=== PATIENT | male | born 1945 | race Caucasian/White ===

== ENCOUNTER 2017-02-18 09:27 | Day surgery (SDC) | payer OTHER ==
[~2017-02-18] VITALS: Ht 167.6 cm; Wt 90.2 kg
[2017-02-18] MEDS ORDERED: ASPIRIN (09:47)
[2017-02-18 09:52] VITALS: Ht 167.6 cm; Wt 90.2 kg
[2017-02-18] MEDS ORDERED: PROPOFOL 40 ML ONE (10:21)
--- NOTE | 2017-02-18 10:58 | OPPN ---
Date/Time of Note Date/Time of Note DATE: 02/18/17 TIME: 10:57 Operative Report Preoperative Diagnosis Screening colonoscopy Positive occult blood in stool Postoperative Diagnosis Multiple sigmoid polyps Rectal polyp Internal hemorrhoids Diverticulosis of the colon Operation/Procedure Performed Colonoscopy biopsy and polypectomy Surgeon see signature line intellectual property legal assistant None Anesthesia: MAC Estimated blood loss: none Transfusion Required none Specimen Colon polyps Grafts/Implants none Complications none TATA MARIE MD Feb 18, 2017 10:58
[2017-02-18 11:27] VITALS: BP 134/82; RESP 14
--- NOTE | 2017-02-19 11:41 | GILP ---
DATE OF PROCEDURE: NAME OF PROCEDURES: Colonoscopy, biopsy and polypectomy. SURGEON: Arielle Starkey MD PREOPERATIVE DIAGNOSES: 1. Screening colonoscopy. 2. Positive occult blood in stool. POSTOPERATIVE DIAGNOSES 1. Colonoscopy all the way to the cecum. 2. Multiple sigmoid polyps were removed using the snare and electrocautery as well as biopsy forcep s. 3. Rectal polyp was removed using the biopsy forceps. 4. Diverticulosis of the colon. 5. Internal hemorrhoids. INDICATION FOR THE PROCEDURE: Mr. Monique is a 71-year-old male patient who was scheduled for screening colonoscopy. The patient had positive occult blood in stool. The procedure and possible complications are well explained to the patient. He understood and conse nted to the procedure. DESCRIPTION OF PROCEDURE: Under the influence of mild anesthesia, the colonoscope was carefully int roduced in the rectum and under direct vision was advanced all the way to the cecum. FINDINGS: The patient had multiple small sigmoid polyps and one of them was removed using the snare and electrocautery and others with biopsy forceps. Patient also had a rectal polyp and it was shravan nayana using the biopsy forceps. He had diverticulosis of the colon and internal hemorrhoids. He tolerated the procedure very well and there was no complication from the procedure. At the end o f the procedure, he was awake with stable vital signs and he was discharged home to the care of his family. IMPRESSION: Please see postoperative diagnosis. PLAN: Await histopathology report. Patient will need next screening colonoscopy in 5 years. Dictated By: ARIELLE CABRERA/SAE Conf#: [id number] DID#: [id number]
== END 2017-02-18 11:24 | disposition home or self-care (01) ==
LOC: GIL 09:27
PROVIDERS: ATTEND Internal Medicine Gastroenterology
DX: Z12.11 Encounter for screening for malignant neoplasm of colon (principal); K63.5 Polyp of colon; K62.1 Rectal polyp; K64.8 Other hemorrhoids; K57.30 Diverticulosis of large intestine without perforation or abscess without bleeding; R19.5 Other fecal abnormalities; N40.0 Benign prostatic hyperplasia without lower urinary tract symptoms; F17.210 Nicotine dependence, cigarettes, uncomplicated
CPT/HCPCS: 45380; 45385; 88305; Z7610